=== PATIENT | female | born 1980 | race Caucasian/White ===

== ENCOUNTER 2017-04-11 18:21 | Day surgery (SDCO) | payer OTHER ==
[~2017-04-11] VITALS: Ht 154.9 cm; Wt 85.7 kg
[2017-04-11 18:48] LABS: BILIRUBIN NEGATIVE (NEGATIVE); BLOOD NEGATIVE Ery/uL (NEGATIVE); COLOR YELLOW (YELLOW); GLUCOSE (U) NORMAL (NORMAL); KETONE (U) NEGATIVE (NEGATIVE); LEUKOCYTES NEGATIVE Leu/uL (NEGATIVE); NITRITE NEGATIVE (NEGATIVE); PROTEIN NEGATIVE (NEGATIVE); UROBILINOGEN 0.2 mg/dL (0.2-1.0); pH 6.5 (5.0-9.0)
[2017-04-11 18:53] LABS: CLARITY SLIGHTLY HAZY (CLEAR)
[2017-04-11 18:56] LABS: AMPHETAMINES NEGATIVE (NEGATIVE); BARBITURATES NEGATIVE (NEGATIVE); BENZODIAZEPINES NEGATIVE (NEGATIVE); COCAINE NEGATIVE (NEGATIVE); MARIJUANA (THC) NEGATIVE (NEGATIVE); METHADONE NEGATIVE (NEGATIVE); TRICYCLIC ANTIDEPRESSANT NEGATIVE (NEGATIVE)
[2017-04-11 21:40] LABS: HCT 37.1 % (37.0-47.0); HGB 13.1 g/dl (12.5-16.0); MCH 32.4 pg (25.0-31.0); MCHC 35.3 g/dL (32.0-36.0); MCV 91.8 fL (78.0-100.0); MPV 11.2 fL (6.0-9.5); RBC 4.04 M/uL (4.20-5.40); RDW 14.1 % (11.5-14.0); WBC 16.8 K/uL (4.0-10.5)
[2017-04-11 22:00] LABS: ALBUMIN 3.7 g/dL (3.5-5.0); BILIRUBIN - TOTAL 0.4 mg/dL (0.1-1.0); CREATININE 0.7 mg/dL (0.5-1.0); GLOBULIN (CALCULATION) 2.6 g/dL (2.2-4.2); POTASSIUM 3.7 mmol/L (3.5-5.1); TOTAL PROTEIN 6.3 g/dL (6.4-8.3)
== END 2017-04-12 11:15 | disposition other institution (70) ==
LOC: FOD 18:21 → FOB 18:21 → FOD 22:14 → FOB 22:15
PROVIDERS: ADMIT Obstetrics & Gynecology
DX: O26.892 Other specified pregnancy related conditions, second trimester (principal); R10.84 Generalized abdominal pain; Z3A.26 26 weeks gestation of pregnancy; Z87.891 Personal history of nicotine dependence; Z88.2 Allergy status to sulfonamides
CPT/HCPCS: 36415; 80053; 80305; 81003; G0378; J2405